=== PATIENT | female | born 2005 | race Caucasian/White ===

== ENCOUNTER 2024-04-13 19:37 | Emergency (ER) | payer OTHER, MEDICAID ==
--- NOTE | 2024-04-13 19:48 | ED Physician Documentation ---
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 Patient says that the pain gets significantly worse after any meal after any eating, 2 days ago she said that she was sitting at her house at rest and started to feel midepigastric pain. She said no nausea or vomiting since then no known fevers or chills she has taken Tylenol ibuprofen with little to no relief. PD PAST MEDICAL HISTORY - Past Medical History Past Medical History: Yes Derm: Eczema - Past Surgical History Past Surgical History: Yes General: Appendectomy - Allergies Allergies/Adverse Reactions: Allergies Allergy/AdvReac Type Severity Reaction Status Date / Time No Known Drug Allergies Allergy Verified 04/13/24 19:52 - Social History Does the pt smoke?: No Smoking Status: Never smoker Does the pt drink ETOH?: No Does the pt have substance abuse?: No - Immunizations Immunizations are current?: Yes - POLST Patient has POLST: No PD ED PE NORMAL - Vitals Vital signs reviewed: Yes - General General: Alert and oriented X 3, No acute distress, Well developed/nourished - Cardiac Cardiac: RRR - Respiratory Respiratory: No respiratory distress, Clear bilaterally - Abdomen Abdomen: Normal bowel sounds, Soft, Non distended, No organomegaly, Other (mid- epigastriC pain, multiple well healed abdominal surgeries) - Back Back: No CVA TTP - Derm Derm: Normal color, Warm and dry, No rash - Psych Psych: Normal mood, Normal affect Results - Vitals Vitals: Vital Signs - 24 hr 04/13/24 04/13/24 19:40 21:07 Temperature 36.5 C Heart Rate 76 73 Respiratory 16 Rate Blood Pressure 120/90 H 128/80 O2 Saturation 100 100 Oxygen O2 Source Room air - Labs Labs: Laboratory Tests 04/13/24 04/13/24 20:06 20:06 WBC 9.1 RBC 5.07 Hgb 13.9 Hct 42.1 MCV 83.0 MCH 27.4 MCHC 33.0 RDW 12.7 Plt Count 338 MPV 8.9 Neut # (Auto) 6.4 Lymph # (Auto) 1.9 [place] # (Auto) 0.7 Eos # (Auto) 0.0 Baso # (Auto) 0.1 Absolute Nucleated RBC 0.00 Nucleated RBC % 0.0 Sodium 138 Potassium 3.4 L Chloride 104 Carbon Dioxide 26 Anion Gap 8.0 BUN 8 Creatinine 0.5 L Estimated GFR (MDRD) 159 Glucose 109 H Calcium 9.2 Total Bilirubin 2.2 H AST 181 H ALT 215 H Alkaline Phosphatase 81 Total Protein 7.3 Albumin 4.4 Globulin 2.9 Albumin/Globulin Ratio 1.5 Lipase 11 - Rads (name of study) Abdomen pelvis CT with con Relevant Findings:: Final report received, EMP independent interpretation of test, Other (Cholelithiasis with distended gallbladder and mild gallbladder wall thickening concerning for acute cholecystitis, obstructing distal common bile duct stones with intra and extrahepatic biliary ductal dilation no bowel obstruction) PD Medical Decision Making - ED course ED course: 18-year-old female presents emergency department for midepigastric pain. Originally she had no nausea vomiting but once she arrived to the emergency department started experiencing worsening back pain with nausea and vomiting. Labs are complete for further evaluation no leukocytosis patient remains afebrile hemodynamically stable, mild hypokalemia potassium 3.4, she does have elevated LFTs, bilirubin elevated at 2.2, AST 881, ALT 215. CT abdomen pelvis is complete for further evaluation and reveals cholelithiasis with distended gallbladder and mild gallbladder wall thickening concerning for acute cholecystitis suggesting of obstructing distal common bile duct stones with intra and extrahepatic biliary ductal dilation without bowel obstruction. I spoke with our on-call surgeon Dr. Alexandre who said that patient needs to have an ERCP due to the obstruction of the intra and extrahepatic biliary duct and this is not something we have here in our hospital. I have given report to Dr. Hoffman who will further be managing patient care due to change of shift and unit [employer] has started working on finding another hospital to accept the patient for ERCP and possible surgery. Patient has been updated and is agreeable and aware of the plan. Departure - Departure Disposition: 01 Home, Self Care Clinical Impression: Cholelithiasis, Cholecystitis Forms: PCP List
[2024-04-13 20:13] LABS: BASOPHILS # (AUTO) 0.1 10^3/uL (0.0-0.1); BASOPHILS % (AUTO) 0.6 %; EOSINOPHILS % (AUTO) 0.4 %; HCT - HEMATOCRIT 42.1 % (37.0-47.0); HGB - HEMOGLOBIN 13.9 g/dL (12.0-16.0); LYMPHOCYTES # (AUTO) 1.9 10^3/uL (1.5-3.5); LYMPHOCYTES % (AUTO) 21.1 %; MEAN CORPUSCULAR HEMOGLOBIN 27.4 pg (27.0-31.0); MEAN PLATELET VOLUME 8.9 fL (7.9-10.8); MONOCYTES # (AUTO) 0.7 10^3/uL (0.0-1.0); MONOCYTES % (AUTO) 7.6 %; NEUTROPHILS # (AUTO) 6.4 10^3/uL (1.5-6.6); NEUTROPHILS % (AUTO) 70.1 %; PLT - PLATELET COUNT 338 10^3/uL (130-450); RED BLOOD COUNT 5.07 10^6/uL (4.20-5.40); RED CELL DISTRIBUTION WIDTH 12.7 % (12.0-15.0); WHITE BLOOD COUNT 9.1 x10^3/uL (4.8-10.8)
[2024-04-13 20:26] LABS: ALBUMIN 4.4 g/dL (3.2-5.5); ALBUMIN/GLOBULIN RATIO 1.5 (1.0-2.2); BILIRUBIN,TOTAL 2.2 mg/dL (0.2-1.0); CALCIUM 9.2 mg/dL (8.5-10.3); CREATININE 0.5 mg/dL (0.6-1.3); POTASSIUM 3.4 mmol/L (3.5-4.5); TOTAL PROTEIN 7.3 g/dL (6.4-8.9)
[2024-04-13] MEDS: KETOROLAC 30 MG/ML VIAL IVP STA (20:32)
[2024-04-13] MEDS: MAG HYDROX/AL HYDROX/SIMETH 30 ML UDC PO STA (20:32)
[2024-04-13] MEDS: ONDANSETRON 4 MG/2 ML VIAL IVP STA (20:32)
[2024-04-13] MEDS: ACETAMINOPHEN 500 MG TABLET PO STA (20:32)
[2024-04-13] MEDS ORDERED: iohexoL-300 100 ML VIAL ONE (20:45)
[2024-04-13] MEDS: iohexoL-300 100 ML VIAL IVP ONE (21:27)
--- NOTE | 2024-04-13 21:43 | CT Report ---
PROCEDURE: Abdomen/Pelvis W INDICATIONS: RUQ pain CONTRAST: OMNI 300, 100mls TECHNIQUE: After the administration of intravenous contrast, a CT scan of the abdomen and pelvis was performed. Images were recorded and evaluated at appropriate window settings. Reformats: coronal and sagittal. F or radiation dose reduction, the following was used: automated exposure control, adjustment of mA and /or kV according to patient size. COMPARISON: None. FINDINGS: Image quality: Diagnostic. Lower chest: Unremarkable. Liver: No solid mass. There is hepatomegaly. Gallbladder: Markedly distended gallbladder containing multiple calcified stones in its dependent por tion. There is suggestion of gallbladder wall thickening. No pericholecystic fluid. Biliary tree: There is mild intrahepatic biliary ductal dilatation and dilatation of common bile ga ures up to 9 mm in diameter proximally and 6 mm in diameter distally. There are stones seen in most d istal common bile duct measures up to 6 mm in size, series 2 image 41 and series 4 image 52. Spleen: No splenomegaly. Pancreas: No pancreatic ductal dilation. Adrenals: No adrenal nodule. Kidneys and ureters: No hydronephrosis. No renal cystic lesion which requires follow up. No solid mas s. Stomach, bowel and peritoneum: Stomach is distended. No gross gastric wall thickening. Mild fecal sta sis in the colon is seen. No abnormal bowel wall thickening. No abscess collection. No free fluid of free air. Lymph nodes: No central or retroperitoneal adenopathy. Vessels: No infrarenal aortic aneurysm. Patent portal vein. PELVIS Reproductive organs: Unremarkable. Bladder: No abnormal wall thickening, accounting for underdistention. Pelvic lymph nodes: No pelvic adenopathy by size criteria. Bones: No aggressive osseous abnormality. Other: No significant ventral or inguinal hernia. IMPRESSION: 1. Cholelithiasis with distended gallbladder and mild gallbladder wall thickening concerning for acut e cholecystitis. 2. Suggestion of obstructing distal common bile duct stones with intra and extrahepatic biliary ducta l dilatation as above. 3. No bowel obstruction. Distended stomach lumen, which may represent mild gastroparesis. No abnormal bowel wall thickening. No free fluid of free air. Reviewed by: Marv Aguilar MD on 04/13/2024 9:41 PM PDT Approved by: Marv Aguilar MD on 04/13/2024 9:41 PM PDT Station ID: [id number]
[2024-04-13] MEDS: oxyCODONE 5 MG TABLET PO STA (22:29)
[2024-04-13 23:40] VITALS: O2SAT 99
--- NOTE | 2024-04-14 00:19 | ED Physician Documentation ---
ED Addendum - Addendum Addendum: 04/14/24 02:14 I received signout/turnover of care from FERNANDA Dewitt on this patient; please see her note for complete H&P. In brief, this patient presents with abdominal pain, found to have evidence of cholecystitis on CT scan with intra and extrahepatic biliary ductal dilatation as well as elevated LFTs (AST, ALT, bilirubin) on blood work. FERNANDA Dewitt discussed this case with Dr. Alexandre ([facility] on-call surgery); Dr. Alexandre recommends transfer to a facility that can undertake ERCP. I discussed this case with the hospitalist at [facility] (Dr. Mitchell); he accepts patient for transfer to [facility]. He requests that patient receive IV antibiotics (we discussed Zosyn and he agrees with this option). I reviewed the plan with the patient. She has a family member at the bedside and they are both requesting that patient be allowed to go to [facility] by private vehicle (patient's family member is going to drive; the patient herself understands that she cannot drive as she was given narcotic/opiate pain medication). I think this is a reasonable option, and thus patient is discharged with instruction to go directly to [facility] by private vehicle. Patient is in no obvious/apparent distress when I am evaluating her, and on my abdominal exam, she only has mild right upper quadrant tenderness without guarding or rebound.
[2024-04-14] MEDS: PIPERACILLIN/TAZOBACTAM 3.375 GM in SODIUM CHLORIDE 0.9% MINIBAG 100 ML IV STA (02:21)
[2024-04-14 02:49] VITALS: BP 119/75
== END 2024-04-14 03:07 | disposition short-term general hospital (02) ==
LOC: ED 19:37
DX: K80.11 Calculus of gallbladder with chronic cholecystitis with obstruction (principal)
CPT/HCPCS: 36415; 74177; 80053; 83690; 85025; 96365; 96375; 99285; A9270; Q9967